=== PATIENT | female | born 1965 | race Caucasian/White ===

== ENCOUNTER 2021-09-23 10:01 | Outpatient (CLI) | payer BC, SELFPAY ==
[2021-09-23 10:26] LABS: Hematocrit 39.7 % (37.0-47.0); Hemoglobin 13.3 g/dL (12.0-15.0); Mean Corpuscular HGB Conc 33.5 g/dl (32-36); Mean Corpuscular Hemoglobin 30.1 pg (26-34); Mean Corpuscular Volume 89.8 fl (80-100); Mean Platelet Volume 8.9 fl (7.4-10.4); Platelet Count Result 329 k/mm3 (150-375); Red Blood Count 4.42 M/mm3 (4.2-5.4); Red Cell Distribution Width 12.1 % (11.5-14.5); White Blood Count 5.8 K/mm3 (4.5-10.0)
[2021-09-23 10:39] LABS: Appearance Urine Cloudy (Clear); Bilirubin Urine Negative (Negative); Color Urine Yellow (Yellow); Glucose Urine UA Negative (Negative); Ketones Urine Negative (Negative); Leukocyte Esterase Ur 2+ LEU/UL (NEGATIVE); Nitrate Urine Negative (Negative); Protein Urine Trace mg/dL (Negative); Specific Grav Ur 1.025 (1.001-1.035); Urobilinogen Urine 0.2 mg/dL (<2.0)
[2021-09-23 10:43] LABS: Mucus Urine Few /lpf; RBC Urine 21-50 /hpf (0-2); Squamous Epithelial Cell Urine Many /hpf (Few); WBC Urine 31-50 /hpf (0-3)
[2021-09-23 10:44] LABS: Add Urine Microscopic? YES; Blood Urine Trace-Intact (Negative)
[2021-09-23 10:46] LABS: Alanine Aminotransferase 13 U/L (4-35); Albumin Level 4.1 g/dL (3.5-5.1); Alkaline Phosphatase 91 U/L (38-126); Anion Gap 6 mmol/L (8-16); Aspartate Amino Transferase 25 U/L (14-36); Bilirubin,Total 0.5 mg/dL (0.2-1.3); Blood Urea Nitrogen 13 mg/dL (7-17); Calcium 8.7 mg/dL (8.4-10.2); Carbon Dioxide 27 mmol/L (22-30); Chloride 106 mmol/L (98-107); Cholesterol 233 mg/dL (0-200); Estimated Glomerular Filt Rate > 60; Glucose 107 mg/dL (65-110); HDL Direct 59 mg/dL; Potassium 3.8 mmol/L (3.4-5.0); Sodium 139 mmol/L (137-145); Triglycerides 78 mg/dL (<150)
[2021-09-23 10:58] LABS: LDL Cholesterol Direct 112 mg/dL
== END 2021-09-23 10:02 | disposition home or self-care (01) ==
LOC: ANHLAB 10:03
PROVIDERS: PCP Family Medicine; Visit Provider Family Medicine
DX: Z00.00 Encounter for general adult medical examination without abnormal findings (principal)
CPT/HCPCS: 36415; 80053; 80061; 81001; 84443; 85027

== ENCOUNTER 2022-09-27 09:16 | Outpatient (CLI) | payer BC, SELFPAY ==
[2022-09-27 09:32] LABS: Hematocrit 43.1 % (37.0-47.0); Hemoglobin 14.2 g/dL (12.0-15.0); Mean Corpuscular HGB Conc 32.9 g/dl (32-36); Mean Corpuscular Hemoglobin 29.9 pg (26-34); Mean Corpuscular Volume 90.7 fl (80-100); Mean Platelet Volume 8.8 fl (7.4-10.4); Platelet Count Result 336 k/mm3 (150-375); Red Blood Count 4.75 M/mm3 (4.2-5.4); Red Cell Distribution Width 12.4 % (11.5-14.5); White Blood Count 5.2 K/mm3 (4.5-10.0)
[2022-09-27 09:42] LABS: Alanine Aminotransferase 18 U/L (6-35); Albumin Level 4.5 g/dL (3.5-5.1); Alkaline Phosphatase 89 U/L (38-126); Anion Gap 3 mmol/L (8-16); Aspartate Amino Transferase 22 U/L (14-36); Bilirubin,Total 0.7 mg/dL (0.2-1.3); Blood Urea Nitrogen 11 mg/dL (7-17); Carbon Dioxide 31 mmol/L (22-30); Chloride 105 mmol/L (98-107); Cholesterol 231 mg/dL (0-200); Estimated Glomerular Filt Rate > 60; Glucose 103 mg/dL (65-110); HDL Direct 62 mg/dL; Potassium 4.4 mmol/L (3.4-5.0); Sodium 139 mmol/L (137-145); Triglycerides 106 mg/dL (<150)
[2022-09-27 09:53] LABS: LDL Cholesterol Direct 117 mg/dL
[2022-09-27 10:12] LABS: Thyroid Stimulating Hormone 0.959 uIU/mL (0.465-4.680)
[2022-09-27 13:46] LABS: Appearance Urine Clear (Clear); Bacteria Urine None Seen /hpf; Bilirubin Urine Negative (Negative); Blood Urine Negative (Negative); Color Urine Yellow (Yellow); Glucose Urine UA Negative (Negative); Ketones Urine Negative (Negative); Leukocyte Esterase Ur 2+ LEU/UL (NEGATIVE); Need Manual Microscopic Reviewed; Nitrate Urine Negative (Negative); Non Pathogenic Casts 0-2; Protein Urine Negative (Negative); RBC Urine 0-2 /hpf (0-2); Specific Grav Ur 1.014 (1.001-1.035); Squamous Epithelial Cell Urine Occasional /hpf (Few); Urobilinogen Urine 0.2 mg/dL (<2.0); WBC Urine 0-5 /hpf (0-3); pH Urine 6.5 (5.0-9.0)
[2022-09-27 13:51] LABS: Add Urine Microscopic? YES
== END 2022-09-27 09:17 | disposition home or self-care (01) ==
LOC: ANHLAB 09:17
PROVIDERS: PCP Family Medicine; Visit Provider Family Medicine
DX: Z00.00 Encounter for general adult medical examination without abnormal findings (principal)
CPT/HCPCS: 36415; 80053; 80061; 81001; 84443; 85027

== ENCOUNTER 2023-10-03 09:22 | Outpatient (CLI) | payer BC, SELFPAY ==
[2023-10-03 10:18] LABS: Hematocrit 41.3 % (37.0-47.0); Hemoglobin 13.5 g/dL (12.0-15.0); Mean Corpuscular HGB Conc 32.7 g/dl (32-36); Mean Corpuscular Hemoglobin 29.5 pg (26-34); Mean Corpuscular Volume 90.2 fl (80-100); Mean Platelet Volume 9.2 fl (7.4-10.4); Platelet Count Result 384 k/mm3 (150-375); Red Blood Count 4.58 M/mm3 (4.2-5.4); Red Cell Distribution Width 12.4 % (11.5-14.5); White Blood Count 5.4 K/mm3 (4.5-10.0)
[2023-10-03 10:38] LABS: Alanine Aminotransferase 14 U/L (6-35); Albumin Level 4.3 g/dL (3.5-5.1); Alkaline Phosphatase 76 U/L (38-126); Anion Gap 7 mmol/L (4-12); Aspartate Amino Transferase 21 U/L (14-36); Bilirubin,Total 0.5 mg/dL (0.2-1.3); Blood Urea Nitrogen 15 mg/dL (7-17); Calcium 9.2 mg/dL (8.4-10.2); Carbon Dioxide 27 mmol/L (22-30); Chloride 107 mmol/L (98-107); Cholesterol 202 mg/dL (0-200); Estimated Glomerular Filt Rate > 60; Glucose 100 mg/dL (65-110); HDL Direct 57 mg/dL; Potassium 3.9 mmol/L (3.4-5.0); Sodium 141 mmol/L (137-145); Triglycerides 97 mg/dL (<150)
[2023-10-03 10:47] LABS: LDL Cholesterol Direct 109 mg/dL
[2023-10-03 11:19] LABS: Appearance Urine Clear (Clear); Bacteria Urine None Seen /hpf; Bilirubin Urine Negative (Negative); Blood Urine Trace (Negative); Color Urine Yellow (Yellow); Glucose Urine UA Negative (Negative); Ketones Urine Trace mg/dL (Negative); Leukocyte Esterase Ur 2+ LEU/UL (Negative); Nitrate Urine Negative (Negative); Protein Urine Trace mg/dL (Negative); Squamous Epithelial Cell Urine Few /hpf (Few); WBC Urine 21-50 /hpf (0-3); pH Urine 5.5 (5.0-9.0)
[2023-10-03 11:41] LABS: Specific Grav Ur 1.031 (1.001-1.035)
[2023-10-03 11:42] LABS: Add Urine Microscopic? YES
== END 2023-10-03 09:23 | disposition home or self-care (01) ==
LOC: ANHLAB 09:23
PROVIDERS: PCP Family Medicine; Visit Provider Family Medicine
DX: Z00.00 Encounter for general adult medical examination without abnormal findings (principal); E78.5 Hyperlipidemia, unspecified
CPT/HCPCS: 36415; 80053; 80061; 81001; 84443; 85027

== ENCOUNTER 2024-10-08 09:51 | Outpatient (CLI) | payer BC, SELFPAY ==
[2024-10-08 10:17] LABS: Hematocrit 41.3 % (37.0-47.0); Hemoglobin 13.7 g/dL (12.0-15.0); Mean Corpuscular HGB Conc 33.2 g/dl (32-36); Mean Corpuscular Hemoglobin 29.7 pg (26-34); Mean Corpuscular Volume 89.4 fl (80-100); Mean Platelet Volume 8.9 fl (7.4-10.4); Platelet Count Result 341 k/mm3 (150-375); Red Blood Count 4.62 M/mm3 (4.2-5.4); Red Cell Distribution Width 12.4 % (11.5-14.5); White Blood Count 5.6 K/mm3 (4.5-10.0)
[2024-10-08 10:29] LABS: Alanine Aminotransferase 17 U/L (6-35); Albumin Level 4.4 g/dL (3.5-5.1); Alkaline Phosphatase 86 U/L (38-126); Anion Gap 8 mmol/L (4-12); Aspartate Amino Transferase 22 U/L (14-36); Bilirubin,Total 0.9 mg/dL (0.2-1.3); Blood Urea Nitrogen 15 mg/dL (7-17); Calcium 9.2 mg/dL (8.4-10.2); Carbon Dioxide 26 mmol/L (22-30); Chloride 106 mmol/L (98-107); Cholesterol 226 mg/dL (0-200); Estimated Glomerular Filt Rate > 60; Glucose 100 mg/dL (65-110); HDL Direct 61 mg/dL; Potassium 4.1 mmol/L (3.4-5.0); Sodium 140 mmol/L (137-145); Triglycerides 60 mg/dL (<150)
[2024-10-08 10:40] LABS: LDL Cholesterol Direct 122 mg/dL
--- OUTSIDE RECORDS SUMMARY | 2024-10-08 10:46 | XMS_ITS | Clinical Summary ---
Author Organization [facility] [employer] Address [address] [place] [address] Care Team Providers Care Sales Support Rep Name Role Phone Purnima Sandoval DO Unavailable Purnima Sandoval DO Unavailable Richard Acosta MD Primary Care Provider [phone] Source Comments [facility] [employer],non-owned Affiliates and Associated Physician Practices is amultiple site organization consisting of ambulatory clinics and hospital sitesin [place], [place], [place] and [place]. This disclosure is being madepursuant to the Care Everywhere program and may not contain all information available regarding this patient. Last updated 18.[employer] [facility] Allergies No known active allergies Medications * Be aware that medications may not be up to date on this document. Alwaysverify current medications with the patient. No known medications Active Problems Problem Noted Date Diagnosed Date Nephrolithiasis 09/19/2008 Skin lesion 09/19/2008 Overview (09/19/2008): Buttock Other screening mammogram 09/19/2008 Overview (09/19/2008): 01/10/08 NEG Resolved Problems Problem Noted Date Diagnosed Date Resolved Date Cervical dysplasia 09/19/2008 5 Screening for cervical cancer 09/19/2008 01/08/2015 Overview (09/19/2008): 12/15/07 WNL Family History Medical History Relation Name Comments Cancer Father prostate cancer Hypertension Father Cancer Mother skin cancer Relation Name Status Comments Father Alive Mother Alive Social History Tobacco Use Types Packs/Day Years Used Date Smoking Tobacco: Never Smokeless Tobacco: Never Tobacco Cessation:Counseling Given: Not Answered Alcohol Use Standard Drinks/Week Comments Yes 0 (1 standard drink = 0.6 oz pur e alcohol) 2 glasses of wine Comments No Sex and Gender Information Value Date Recorded Sex Assigned at Not on file Legal Sex Female 6:44 AM SOAP GRINDER Gender Identity Not on file Sexual Orientation Not on file 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 Not on file Not on file Not on lorrie e Last Filed Vital Signs Vital Sign Reading Time Taken Comments Blood Pressure 140/90 07/19/2022 1:50 PM SOAP GRINDER Pulse 88 11/06/2012 3:30 PM CDT Temperature - - Respiratory Rate 12 01/08/2015 10:59 AM CDT Oxygen Saturation - - Inhaled Oxygen Concentration - - Weight 79.4 kg (175 lb) 06/07/2024 1:20 PM SOAP GRINDER Height 175.3 cm (5' 9 ) 06/07/2024 1:20 PM SOAP GRINDER Body Mass Index 25.84 06/07/2024 1:20 PM SOAP GRINDER Plan of Treatment Health Maintenance Due Date Last Done Comments COLOGUARD (AGES 45-75) - COLON CA SCREENING 1963 COLON MONITORING 1963 COLONOSCOPY - COLON CA SCREENING 1963 CT COLONOGRAPHY - COLON CA SCREENING 1963 Colorectal Cancer Screening 1963 FIT - COLON CA SCREENING 1963 FLEX SIG - COLON CA SCREENING 1963 LIPID TESTING 1963 HIV SCREENING 12/10/1978 HEPATITIS C SCREENING 12/06/1981 DTAP/TDAP/TD VACCINES (1 - Tdap) 12/10/1982 PNEUMOCOCCAL VACCINE 50+ (1 of 1 - PCV) 12/10/2013 ZOSTER VACCINE (1 of 2) 12/10/2013 SCREENING FOR DIABETES 07/19/2022 COVID-19 VACCINE ( - season) 2024 04/19/2022, 11/09/2021, 04/30/2021, Additional history exists DEPRESSION SCREENING 06/27/2024 INFLUENZA VACCINE (Season Ended) 2025 04/19/2022, 04/09/2020, 04/19/2003 MAMMOGRAM 06/07/2026 06/07/2024, 05/27, 06/03/2022, Additional history exists PAP with HPV 07/19/2027 07/19/2022, 02/25, 11/06/2012, Additional history exists Respiratory Syncytial Virus (RSV) Vaccine Pt: or over 60 yrs (1 - 1-dose 75+ series) 12/10/2038 HEPATITIS B VACCINE Aged Out No longe r eligible based on patient's age to complete this topic HIB VACCINE Aged Out No longer eligi ble based on patient's age to complete this topic HPV VACCINE Aged Out No longer eligi ble based on patient's age to complete this topic MENINGOCOCCAL (Group B) VACCINE SHARED DECISION-MAKING Aged Out No longer eligible based on patient's age to complete this topic MENINGOCOCCAL GROUPS A/C/Y/W VACCINE Aged Out No longer eligible based on patient's age to complete this topic Procedures Procedure Name Priority Date/Time Associated Diagnosis Comments MAMMO BILAT SCREENING W RENNY Routine 06/07/2024 1:21 PM SOAP GRINDER Encounter for screening mammogram for malignant neoplasm of breast PAP IG LB +HPV APTIMA REFLEX 16,18/45 Routine 07/19/2022 5:28 PM SOAP GRINDER Well woman exam Screening for HPV (human papillomavirus) from Last 3 Months or Most Recently Relevant to Health Maintenance Results * Mammo Bilat Screening W Renny (06/07/2024 1:21 PM SOAP GRINDER) Anatomical Region Laterality Modality Breast Bilateral Mammography 06/08/2024 10:0 0 AM SOAP GRINDER Impressions 06/08/2024 10:01 AM SOAP GRINDER IMPRESSION: Annual screening mammography is recommended. OVERALL FINAL ASSESSMENT: BI-RADS Category 2: Benign. > Interpreting Provider: Rosana Cabrera MD on 06/08/2024 10:01 AM Narrative 06/08/2024 10:01 AM SOAP GRINDER EXAMINATION: BILATERAL DIGITAL SCREENING MAMMOGRAM AND BILATERAL BREAST TOMOSYNTHESIS HISTORY: Screening. COMPARISON: Serial examinations dating back to 05/21/2020 TECHNIQUE: BILATERAL digital breast tomosynthesis (DBT) and synthetic 2D digital mammogram images were obtained (bilateral craniocaudal and mediolateral oblique projections) including computer aided detection (CAD.) BREAST PARENCHYMAL COMPOSITION: Category C: The breasts are heterogeneously dense which may obscure small masses. MAMMOGRAM FINDINGS: There is no suspicious finding in either breast. A biopsy clip is again noted in the right subareolar breast. Overall, there has been no significant interval change. Purnima Sandoval DO MAMMO ORDERABLES Final Result * PAP IG LB +HPV APTIMA REFLEX 16,18/45 (07/19/2022 5:28 PM SOAP GRINDER) Diagnosis [facility] ACCOUNT BILL Comment:NEGATIVE FOR INTRAEP ITHELIAL LESION OR MALIGNANCY. Specimen Adequacy [facility] ACCOUNT BILL Comment: Satisfactory for evaluation. Endocervical and/or squamous metaplastic cells (endocervical component) are present. Clinician Provided ICD10 [facility] ACCOUNT BILL Comment: Z01.419 Z11.51 Performed by [facility] ACCOUNT BILL Comment:Misael Rayo totechnologist Comment . [facility] ACCOUNT BILL Note [facility] ACCOUNT BILL Comment: The Pap smear is a screening test designed to aid in the detection of premalignant and malignant conditions of the uterine cervix. It is not a diagnostic procedure and should not be used as the sole means of detecting cervical cancer. Both false-positive and false-negative reports do occur. . IGLBP CPT Code Automation [facility] ACCOUNT BILL Comment: This liquid based ThinPrep(R) pap test was screened with the use of an image guided system. Human papillomavirus Aptima Negative Negative [facility] ACCOUNT BILL Comment: This nucleic acid amplification test detects fourteen high-risk HPV types (16,18,31,33,35,39,45,51,52,56,58,59,66,68) without differentiation. HPV Genotype Reflexed [facility] ACCOUNT BILL Comment:Criteria not met, HP V Genotype not performed. PART OF UTERINE CERVIX / Unknown 07/19/2022 5:28 PM SOAP GRINDER 07/19/2022 Narrative [facility] ACCOUNT BILL - 07/20/2022 9:07 PM SOAP GRINDER No. of containers..01 ThinPrep Vial Resulting Agency Comment Lab Testing performed at: [facility] [address] [id number] [place] Purnima Sandoval DO LAB - PATHOLOGY/CYTOLOGY ORDERAB LES Final Result [facility] ACCOUNT BILL [address] [place] [address] from Last 3 Months or Most Recently Relevant to Health Maintenance Insurance [employer]THEM Care Teams Sales Support Rep Relationship Specialty [place] [email or web address] [place] [address] PCP - OBGYN 09/19/08 [place] [address] [place], [place] [id number] PCP - General Internal Medicine 10/31/13 [place] [id number] [place], [place] [id number] Referring Physician Obstetrics and Gynecology 10/31/13
--- OUTSIDE RECORDS SUMMARY | 2024-10-08 10:46 | XMS_ITS | Encounter Summary ---
Author Organization [facility] Address [address] [place] [address] Care Team Providers Care Quality Compliance Coordinator Name Role Phone Lori Purnima Munguia DO Unavailable Purnima Sandoval DO Unavailable Richard Acosta MD Primary Care Provider [phone] Encounter Details Date Type Department Care Team (Late st Contact Info) Description 10/31/2013 [facility] [place] [address] [place] [address] Social History Tobacco Use Types Packs/Day Years Used Date Smoking Tobacco: Never Smokeless Tobacco: Never Alcohol Use Standard Drinks/Week Comments Yes 0 (1 standard drink = 0.6 oz pur e alcohol) 2 glasses of wine Comments No Sex and Gender Information Value Date Recorded Sex Assigned at Not on file Legal Sex Female 6:44 AM AUTOMOTIVE SERVICE PROFESSIONAL Gender Identity Not on file Sexual Orientation Not on file documented as of this encounter Plan of Treatment Not on file documented as of this encounter Visit Diagnoses Not on filedocumented in this encounter Care Teams Quality Compliance Coordinator Relationship Specialty [place] [address] [address] [place] [address] PCP - OBGYN 09/19/08 [place] [address] [facility] [address] [place] [address] PCP - General Internal Medicine 10/31/13 [place] [address] [facility] [address] [place] [id number] Referring Physician Obstetrics and Gynecology 10/31/13 documented as of this encounter
[2024-10-08 11:04] LABS: Add Urine Microscopic? YES; Appearance Urine Clear (Clear); Bacteria Urine None Seen /hpf; Bilirubin Urine Negative (Negative); Blood Urine Negative (Negative); Color Urine Yellow (Yellow); Glucose Urine UA Negative (Negative); Ketones Urine Trace mg/dL (Negative); Leukocyte Esterase Ur 3+ LEU/UL (Negative); Mucus Urine Present /lpf; Need Manual Microscopic Reviewed; Nitrate Urine Negative (Negative); Non Pathogenic Casts 0-2; Protein Urine Negative (Negative); RBC Urine 0-2 /hpf (0-2); Specific Grav Ur 1.023 (1.001-1.035); Squamous Epithelial Cell Urine Few /hpf (Few); pH Urine 5.5 (5.0-9.0)
[2024-10-08 11:38] LABS: Folic Acid > 20.0 ng/mL (2.76->20)
== END 2024-10-08 09:52 | disposition home or self-care (01) ==
LOC: ANHLAB 09:53
PROVIDERS: PCP Family Medicine; Visit Provider Family Medicine
DX: Z00.00 Encounter for general adult medical examination without abnormal findings (principal); R53.83 Other fatigue; E78.5 Hyperlipidemia, unspecified
CPT/HCPCS: 36415; 80053; 80061; 81001; 82607; 82746; 84443; 85027

== ENCOUNTER 2024-10-12 00:07 | Day surgery (SDC) | payer BC, SELFPAY ==
[2024-10-09 14:05] VITALS: BMI 25.7
--- OUTSIDE RECORDS SUMMARY | 2024-10-12 00:09 | XMS_ITS | Encounter Summary ---
Author Organization [facility] Address [address] [place] [address] Care Team Providers Care Middleware Solutions Architect Name Role Phone Lori Purnima Munguia DO Unavailable Purnima Sandoval DO Unavailable Richard Acosta MD Primary Care Provider [phone] Encounter Details Date Type Department Care Team (Late st Contact Info) Description 10/31/2013 [facility] [place] [address] [place] [address] Social History Tobacco Use Types Packs/Day Years Used Date Smoking Tobacco: Never Smokeless Tobacco: Never Alcohol Use Standard Drinks/Week Comments Yes 0 (1 standard drink = 0.6 oz pur e alcohol) 2 glasses of wine Comments No Sex and Gender Information Value Date Recorded Sex Assigned at Not on file Legal Sex Female 6:44 AM FABRIC SOURCER Gender Identity Not on file Sexual Orientation Not on file documented as of this encounter Plan of Treatment Not on file documented as of this encounter Visit Diagnoses Not on filedocumented in this encounter Care Teams Middleware Solutions Architect Relationship Specialty [place] [id number] [address] [facility] [address] [place] [address] PCP - OBGYN 09/19/08 [place] [address] [facility] [address] [place] [address] PCP - General Internal Medicine 10/31/13 [place] [address] [facility] [address] [place] [id number] Referring Physician Obstetrics and Gynecology 10/31/13 documented as of this encounter
--- OUTSIDE RECORDS SUMMARY | 2024-10-12 00:09 | XMS_ITS | Clinical Summary ---
Author Organization [facility] [employer] Address [address] [facility] [place] [address] Care Team Providers Care Natural Gas Technician Name Role Phone Purnima Sandoval DO Unavailable Purnima Sandoval DO Unavailable Richard Acosta MD Primary Care Provider [phone] [facility] [employer],non-owned Affiliates and Associated Physician Practices is amultiple site organization consisting of ambulatory clinics and hospital sitesin [place], [place], [place] and [place]. This disclosure is being madepursuant to the Care Everywhere program and may not contain all information available regarding this patient. 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 on file Not on lorrie e Last Filed Vital Signs Vital Sign Reading Time Taken Comments Blood Pressure 140/90 07/19/2022 1:50 PM DYNAMICS AX DEVELOPER Pulse 88 11/06/2012 3:30 PM CDT Temperature - - Respiratory Rate 12 01/08/2015 10:59 AM CDT Oxygen Saturation - - Inhaled Oxygen Concentration - - Weight 79.4 kg (175 lb) 06/07/2024 1:20 PM DYNAMICS AX DEVELOPER Height 175.3 cm (5' 9 ) 06/07/2024 1:20 PM DYNAMICS AX DEVELOPER Body Mass Index 25.84 06/07/2024 1:20 PM DYNAMICS AX DEVELOPER Plan of Treatment Health Maintenance Due Date [...] SCREENING W RENNY Routine 06/07/2024 1:21 PM DYNAMICS AX DEVELOPER Encounter for screening mammogram for malignant neoplasm of breast PAP IG LB +HPV APTIMA REFLEX 16,18/45 Routine 07/19/2022 5:28 PM DYNAMICS AX DEVELOPER Well woman exam Screening for HPV (human papillomavirus) from Last 3 Months or Most Recently Relevant to Health Maintenance Results * Mammo Bilat Screening W Renny (06/07/2024 1:21 PM DYNAMICS AX DEVELOPER) Anatomical Region Laterality Modality Breast Bilateral Mammography 06/08/2024 10:0 0 AM DYNAMICS AX DEVELOPER Impressions 06/08/2024 10:01 AM DYNAMICS AX DEVELOPER IMPRESSION: Annual screening mammography is recommended. OVERALL FINAL ASSESSMENT: BI-RADS Category 2: Benign. > Interpreting Provider: Rosana Cabrera MD on 06/08/2024 10:01 AM Narrative 06/08/2024 10:01 AM DYNAMICS AX DEVELOPER EXAMINATION: BILATERAL DIGITAL SCREENING MAMMOGRAM AND BILATERAL [...] +HPV APTIMA REFLEX 16,18/45 (07/19/2022 5:28 PM DYNAMICS AX DEVELOPER) Diagnosis [facility] ACCOUNT BILL Comment:NEGATIVE FOR INTRAEP [...] UTERINE CERVIX / Unknown 07/19/2022 5:28 PM DYNAMICS AX DEVELOPER 07/19/2022 Narrative [facility] ACCOUNT BILL - 07/20/2022 9:07 PM DYNAMICS AX DEVELOPER No. of containers..01 ThinPrep Vial Resulting Agency Comment Lab Testing performed at: [facility] [address] [id number] [place] Purnima Sandoval DO LAB - PATHOLOGY/CYTOLOGY ORDERAB LES Final Result [facility] ACCOUNT BILL [address] [place] [address] from Last 3 Months or Most Recently Relevant to Health Maintenance Insurance ANTHEM Care Teams Natural Gas Technician Relationship Specialty [place] [address] [place] [address] PCP - OBGYN 09/19/08 [place] [address] [place], [place] [id number] PCP - General Internal Medicine 10/31/13 [place] [address] [place], [place] [phone] Referring Physician Obstetrics and Gynecology 10/31/13
[2024-10-12 06:24] VITALS: BP 139/83; PULSE 67; RESP 16; TEMP 35.8; O2SAT 98
[2024-10-12] MEDS: LACTATED RINGERS 1,000 ML 150 ML IV CONT (06:34)
--- NOTE | 2024-10-12 06:38 | P.PNAN_ITS ---
Anes - Initial Pre Proc Eval Procedure: Operation Date: 10/12/24 07:30 Proposed Procedures p Screening Colonoscopy - Juan Street MD Date/Time: 10/12/24 06:38 Surgeon: Juan Street MD Pre Op Diagnosis: Screening Patient Data Age: 58 Gender: F Height: 1.75 m Weight: 78.4 kg Last Vital Signs Temp 35.8 C L 10/12/24 06:24 Pulse 67 10/12/24 06:24 Resp 16 10/12/24 06:24 BP 139/83 10/12/24 06:24 Pulse Ox 98 10/12/24 06:24 O2 Del Method Room Air 10/12/24 06:24 Allergies Allergy/AdvReac Type Severity Reaction Status Date / Time No Known Allergies Allergy Verified 10/12/24 06:22 Home Medications ?Medication ?Instructions ?Recorded ?Confirmed ?Type No Home Medications 10/03/23 10/09/24 History Patient hx anesthesia problems: none Family hx anesthesia problems: none Results Review: All pre-operative results and documents have been reviewed as part of the pre- operative evaluation. [facility] Surgical History Surgical History History of arthroscopy of knee bilateral Family History Family History Father Hypertension Malignant neoplasm of prostate Mother Hypertension Cerebrovascular accident Social History Social History Social History: Smoking status: Never smoker Second hand tobacco smoke exposure: No Alcohol intake: never Alcohol use details: Occasionally Substance use: never Substance use type: does not use Do You Feel Safe in your Home?: Yes Lack of Transportation: No Lack of Food: Never True Current Housing: I Have Housing Concerned About Future Housing: No Difficulty Paying Gas/Electric Bills: No Difficulty Paying for Meds: No Currently Unemployed: No Education: Don't Know Difficulty w/ Childcare or Family Care: No Living arrangements: with family Occupation/Education: occupation Gender identity (if verbalized by the patient): Female Sexual Orientation (if Verbalized by the Patient): Straight or Heterosexual Spiritual care concerns: No Anes - Eval Final PreProcedure Day of Procedure 10/12/24 06:38 Patient weight: normal Heart: regular rate and rhythm Lungs: clear to auscultation Airway: Mallampati scale class II Neurological: alert and oriented Last oral intake: >/= 8 hours ASA classification: I Emergent: no Anesthetic plan: proceed Anesthesia type and monitoring: general GIVS and standard monitoring Results Review: All pre-operative results and documents have been reviewed as part of the pre- operative evaluation. Informed Consent: The patient's anesthetic plan and its attendant risks and benefits were discussed with the patient/family/POA. Questions were solicited and answers provided to the satisfaction of the patient/family/POA.
--- NOTE | 2024-10-12 07:30 | PM.IMHP ---
H&P: HPI History of Present Illness Date/Time: 10/12/24 07:30 Chief Complaint: Screening colon Narrative: This is the patient's first colonoscopy. There are no GI symptoms and there is no family history of colorectal cancer. Review of Systems Review of Systems: All systems reviewed & are unremarkable except as noted in HPI and below PMFSH Surgical History Surgical History History of arthroscopy of knee bilateral Family History Family History Father Hypertension Malignant neoplasm of prostate Mother Hypertension Cerebrovascular accident Social History Social History Social History: Smoking status: Never smoker Second hand tobacco smoke exposure: No Alcohol intake: never Alcohol use details: Occasionally Substance use: never Substance use type: does not use Do You Feel Safe in your Home?: Yes Lack of Transportation: No Lack of Food: Never True Current Housing: I Have Housing Concerned About Future Housing: No Difficulty Paying Gas/Electric Bills: No Difficulty Paying for Meds: No Currently Unemployed: No Education: Don't Know Difficulty w/ Childcare or Family Care: No Living arrangements: with family Occupation/Education: occupation Gender identity (if verbalized by the patient): Female Sexual Orientation (if Verbalized by the Patient): Straight or Heterosexual Spiritual care concerns: No Meds Home Medications and Allergies Home Medications ?Medication ?Instructions ?Recorded ?Confirmed ?Type No Home Medications 10/03/23 10/09/24 History Allergies Allergy/AdvReac Type Severity Reaction Status Date / Time No Known Allergies Allergy Verified 10/12/24 06:22 Vital Signs Vital Signs - 24 hr 10/12/24 06:24 Temperature 96.4 F L Pulse Rate 67 Respiratory Rate 16 Blood Pressure 139/83 Pulse Oximetry 98 Oxygen Delivery Room Air Exam Const: General: cooperative and healthy appearing Resp: Effort & Inspection: normal respiratory effort and able to speak in complete sentences Auscultation: clear to auscultation bilaterally Cardio: Rate: regular rate Rhythm: regular rhythm GI: Inspection: normal to inspection GI Palp: No No hepatosplenomegaly present Auscultation: normal bowel sounds Rectal Exam: deferred Skin: General skin exam: normal color Psych: Appearance: grossly normal Mental Status: mental status grossly normal Assessment and Plan Assessment and plan (1) Encounter for screening colonoscopy: Code(s): Z12.11 - Encounter for screening for malignant neoplasm of colon Status: Acute Assessment and Plan: The patient is deemed a good candidate for the procedure. Consent signed. Will proceed.
[2024-10-12 07:48] VITALS: BP 117/77; PULSE 69; RESP 16; O2SAT 96
[2024-10-12 07:58] VITALS: BP 110/73; PULSE 60; RESP 16; O2SAT 97
[2024-10-12 08:08] VITALS: BP 115/76; PULSE 74; RESP 16; O2SAT 100
== END 2024-10-12 08:15 | disposition home or self-care (01) ==
PROVIDERS: PCP Family Medicine; Referring Provider Family Medicine; Visit Provider Internal Medicine Gastroenterology
PROC: 0DJD8ZZ Inspection of Lower Intestinal Tract, Via Natural or Artificial Opening Endoscopic (ICD-10-PCS; CPT 45378; principal; 2024-10-12 07:30)
DX: Z12.11 Encounter for screening for malignant neoplasm of colon (principal); K57.30 Diverticulosis of large intestine without perforation or abscess without bleeding; Z98.890 Other specified postprocedural states; Z80.42 Family history of malignant neoplasm of prostate; Z82.49 Family history of ischemic heart disease and other diseases of the circulatory system
CPT/HCPCS: 45378; J2003; J2704; J7120